=== PATIENT | male | born 1935 | race Two or more races ===

== ENCOUNTER 2022-07-26 07:07 | Outpatient (CLI) | payer OTHER | END 2022-07-26 07:19 | disposition home or self-care (01) | LOC: LAB 07:07 | PROVIDERS: ATTEND Orthopaedic Surgery | DX: D64.9 Anemia, unspecified (principal); N39.0 Urinary tract infection, site not specified; Z22.322 Carrier or suspected carrier of Methicillin resistant Staphylococcus aureus; D68.8 Other specified coagulation defects; M25.551 Pain in right hip; M25.552 Pain in left hip; M79.651 Pain in right thigh; Z76.89 Persons encountering health services in other specified circumstances; I49.9 Cardiac arrhythmia, unspecified; I10 Essential (primary) hypertension ==

== ENCOUNTER 2022-08-04 11:45 | Inpatient (IN) | payer OTHER ==
[~2022-08-04] VITALS: Ht 167.6 cm; Wt 80.7 kg
[2022-08-04] MEDS ORDERED: SYNTHROID75 MCG PO (13:32)
[2022-08-04] MEDS ORDERED: GLIMEPIRIDE2 MG (13:32)
[2022-08-04] MEDS ORDERED: ACCUPRIL40 MG PO (13:32)
[2022-08-04] MEDS ORDERED: LASIX20 MG PO (13:33)
[2022-08-04] MEDS ORDERED: TAMS0.4C PO (13:33)
[2022-08-04] MEDS ORDERED: PLAVIX75 MG PO (13:33)
[2022-08-09] MEDS ORDERED: ALPRAZOLAM0.25 MG (08:56)
== END 2022-08-14 11:50 | disposition home or self-care (01) | DRG 470 ==
LOC: SURG 08-09 07:00 → SURH 08-09 07:26 → O/R 08-09 07:26 → SURG 08-09 12:15 → SURH 08-09 14:58
PROVIDERS: ADMIT Orthopaedic Surgery; ATTEND Orthopaedic Surgery
PROC: 0SR90JZ Replacement of Right Hip Joint with Synthetic Substitute, Open Approach (ICD-10-PCS; principal; 2022-08-09 07:00)
DX: M16.11 Unilateral primary osteoarthritis, right hip (principal); D62 Acute posthemorrhagic anemia; I10 Essential (primary) hypertension; E11.9 Type 2 diabetes mellitus without complications; Z79.4 Long term (current) use of insulin

== ENCOUNTER 2022-11-30 10:30 | Outpatient (CLI) | payer OTHER ==
[~2022-11-30 10:30] MED LIST: ACCUPRIL40 MG PO; ALPRAZOLAM0.25 MG; GLIMEPIRIDE2 MG; LASIX20 MG PO; PLAVIX75 MG PO; SYNTHROID75 MCG PO; TAMS0.4C PO
== END 2022-11-30 10:39 | disposition home or self-care (01) ==
LOC: RAD 10:30
PROVIDERS: ATTEND Orthopaedic Surgery
DX: M17.0 Bilateral primary osteoarthritis of knee (principal); Z88.6 Allergy status to analgesic agent

== ENCOUNTER 2022-11-30 13:13 | Outpatient (CLI) | payer OTHER | END 2022-11-30 13:14 | disposition home or self-care (01) | LOC: NUCLEAR 13:13 | PROVIDERS: ATTEND Orthopaedic Surgery | DX: M81.0 Age-related osteoporosis without current pathological fracture (principal) ==

== ENCOUNTER 2023-03-04 07:06 | Outpatient (CLI) | payer OTHER | END 2023-03-04 07:07 | disposition home or self-care (01) | LOC: LAB 07:06 | PROVIDERS: ATTEND Orthopaedic Surgery | DX: E55.9 Vitamin D deficiency, unspecified (principal); M85.9 Disorder of bone density and structure, unspecified; E56.1 Deficiency of vitamin K; Z88.6 Allergy status to analgesic agent ==

== ENCOUNTER 2023-03-04 07:59 | Outpatient (CLI) | payer OTHER | END 2023-03-04 08:02 | disposition home or self-care (01) | LOC: RAD 07:59 | PROVIDERS: ATTEND Orthopaedic Surgery | DX: M54.50 Low back pain, unspecified (principal) ==

== ENCOUNTER 2023-12-26 08:27 | Outpatient (CLI) | payer OTHER | END 2023-12-26 08:32 | disposition home or self-care (01) | LOC: RAD 08:27 | PROVIDERS: ATTEND Orthopaedic Surgery | DX: Z96.641 Presence of right artificial hip joint (principal); M61.051 Myositis ossificans traumatica, right thigh ==

== ENCOUNTER → 2023-12-26 09:07 | Outpatient (CLI) | payer OTHER | END | disposition home or self-care (01) | LOC: NUCLEAR 09:07 | PROVIDERS: ATTEND Orthopaedic Surgery | DX: I87.2 Venous insufficiency (chronic) (peripheral) (principal) ==

== ENCOUNTER 2024-04-10 08:05 | Outpatient (CLI) | payer OTHER | END 2024-04-10 08:12 | disposition home or self-care (01) | LOC: RAD 08:05 | PROVIDERS: ATTEND Orthopaedic Surgery | DX: M61.051 Myositis ossificans traumatica, right thigh (principal); Z96.641 Presence of right artificial hip joint ==

== ENCOUNTER 2024-05-01 07:19 | Outpatient (CLI) | payer OTHER ==
[2024-05-01 09:33] LABS: FERRITIN 60.3 NG/ML (26-388)
[2024-05-01 10:55] LABS: FOLIC ACID > 20.00 ng/ml (4.78-20)
== END 2024-05-01 07:25 | disposition home or self-care (01) ==
LOC: LAB 07:19
PROVIDERS: ATTEND Orthopaedic Surgery
DX: K59.00 Constipation, unspecified (principal); K64.0 First degree hemorrhoids; D64.9 Anemia, unspecified

== ENCOUNTER 2024-05-08 07:26 | Outpatient (CLI) | payer OTHER | END 2024-05-08 07:33 | disposition home or self-care (01) | LOC: TOM 07:26 | PROVIDERS: ATTEND Internal Medicine Gastroenterology | DX: D59.0 Drug-induced autoimmune hemolytic anemia (principal); K62.5 Hemorrhage of anus and rectum; K64.0 First degree hemorrhoids; D64.9 Anemia, unspecified | CPT/HCPCS: 74177; Q9965 ==